=== PATIENT | male | born 1970 | race Caucasian/White ===

== ENCOUNTER 2019-12-29 14:07 | Outpatient (CLI) | payer MEDICARE, SELFPAY ==
--- NOTE | ~2019-12-29 | XR_ITS ---
EXAMINATION: XR chest 2V DATE: 12/29/2019 14:34 INDICATION: Shortness of breath TECHNIQUE: PA and lateral views of the chest are obtained. COMPARISON: None available FINDINGS: The lungs are free of acute opacities. A calcified nodule of the right upper lobe is consis tent with old granulomatous disease. There is no pleural effusion or pneumothorax. The cardiomediasti nal silhouette is normal. The visualized bones and soft tissues are unremarkable. IMPRESSION: 1. No acute cardiopulmonary abnormality. Reviewed, dictated and finalized at location A. ENTICE EMBALMER
--- NOTE | ~2019-12-29 | US_ITS ---
EXAMINATION: US abdomen limited DATE: 12/29/2019 15:04 INDICATION: Right upper quadrant abdominal pain. TECHNIQUE: Multiple grayscale and Doppler ultrasound images of the abdomen were obtained. COMPARISON: None FINDINGS: The visualized portions of the head and body of the pancreas are normal. There is diffuse h epatic steatosis. There is normal flow in main portal vein. The gallbladder is absent. The common giselle t is normal and measures 4 mm. IMPRESSION: 1. Diffuse hepatic steatosis. Reviewed, dictated and finalized at location A. INER
[2019-12-29 14:20] LABS: Basophils Absolute Auto 0.19 K/mm3 (0.00-0.10); Basophils Percent Auto 1.6 % (0.0-1.0); Eosinophils Absolute Auto 0.32 K/mm3 (0.02-0.50); Eosinophils Percent Auto 2.8 % (1.0-6.0); Hemoglobin 16.1 g/dL (14.0-18.0); Immature Granulocyte Absolute 0.03 K/mm3 (0.00-0.00); Immature Granulocyte Percent A 0.3 % (0.0-0.0); Lymphocytes Absolute Auto 4.08 K/mm3 (1.10-4.50); Lymphocytes Percent Auto 35.3 % (18.0-42.0); Mean Corpuscular HGB Conc 32.2 g/dL (32.0-36.0); Mean Corpuscular Hemoglobin 25.7 pg (27.0-31.0); Mean Corpuscular Volume 79.9 fL (78.0-102.0); Mean Platelet Volume 9.2 fl (8.7-11.0); Monocytes Percent Auto 8.6 % (2.0-11.0); Neutrophils Percent Auto 51.4 % (50.0-70.0); Platelet Count Result 359 K/mm3 (150-420); Red Blood Count 6.26 M/mm3 (4.70-6.10); White Blood Count 11.6 K/mm3 (4.8-10.8)
[2019-12-29 15:03] LABS: Anion Gap 12.4 mmol/L (7-16); Blood Urea Nitrogen 19 mg/dL (7-18); Calcium 9.7 mg/dL (8.5-10.1); Carbon Dioxide 29 mmol/L (21-32); Chloride 102 mmol/L (98-108); Estimated Glomerular Filt Rate > 60; Glucose 98 mg/dL (70-99); Osmolality Calculated 288 mOsm/kg (285-295); Potassium 5.4 mmol/L (3.5-5.1); Sodium 138 mmol/L (136-145)
== END 2019-12-29 14:08 | disposition home or self-care (01) ==
PROVIDERS: PCP Nurse Practitioner Family; Visit Provider Nurse Practitioner Family
DX: R06.02 Shortness of breath (principal); R10.11 Right upper quadrant pain
CPT/HCPCS: 36415; 71046; 76705; 80048; 85025

== ENCOUNTER 2020-01-12 08:33 | Outpatient (CLI) | payer MEDICARE, SELFPAY ==
--- NOTE | ~2020-01-12 | US_ITS ---
EXAMINATION: US soft tissue head and neck DATE: 01/12/2020 09:04 INDICATION: Right submandibular mass TECHNIQUE: Multiple grayscale and Doppler ultrasound images of the right and left submandibular regio ns of the neck were obtained. COMPARISON: None FINDINGS: Normal symmetric appearance to the bilateral submandibular glands which measures 5.0 x 2.1 x 3.8 cm o n the right and 4.2 x 2.1 x 3.4 cm on the left. Normal sized 1.5 x 0.5 right submandibular lymph node . No pathologically enlarged lymph nodes, abnormal masses or fluid collections identified. IMPRESSION: 1. Normal right submandibular gland and right submandibular lymph node at the region of concern. No p athologically enlarged lymph nodes, abnormal masses or fluid collections identified. Reviewed, dictated and finalized at location A. ON CUTTER IMPRESSION: 1. Normal right submandibular gland and right submandibular lymph node at the r egion of concern. No pathologically enlarged lymph nodes, abnormal masses or fl uid collections identified.
== END 2020-01-12 08:34 | disposition home or self-care (01) ==
LOC: CHSIMG 08:35
PROVIDERS: PCP Nurse Practitioner Family; Visit Provider Nurse Practitioner Family
DX: R22.1 Localized swelling, mass and lump, neck (principal)
CPT/HCPCS: 76536